=== PATIENT | male | born 1990 | race American Indian/Alaskan Native ===

== ENCOUNTER 2021-02-18 02:47 | Emergency (ER) | payer SELFPAY | END 2021-02-18 05:45 | disposition left against medical advice (07) | LOC: ED 02:47 | DX: R10.9 Unspecified abdominal pain (principal); Z53.21 Procedure and treatment not carried out due to patient leaving prior to being seen by health care provider ==

== ENCOUNTER 2021-02-18 09:37 | Emergency (ER) | payer SELFPAY ==
[2021-02-18 09:43] VITALS: BP 145/91
== END 2021-02-18 11:48 ==
LOC: ED 09:37
DX: R10.9 Unspecified abdominal pain (principal); Z53.21 Procedure and treatment not carried out due to patient leaving prior to being seen by health care provider

== ENCOUNTER 2021-08-02 06:10 | Emergency (ER) | payer MEDICAID ==
[2021-08-02 06:22] VITALS: BP 128/75
[2021-08-02] MEDS ORDERED: SODIUM CHLORIDE 0.9% 1000 ML 1,000 ML IV ONE (06:42)
[2021-08-02] MEDS ORDERED: HALOPERIDOL LACTATE 5 MG/1 ML INJ IM ONE (06:42)
[2021-08-02] MEDS ORDERED: DICYCLOMINE 20 MG/2 ML INJ IM ONE (06:43)
--- NOTE | 2021-08-02 06:47 | Emergency Department Report ---
ED Abdominal Pain HPI - General Chief Complaint: Abdominal Pain Stated Complaint: STOMACH PAIN Time Seen by Provider: 08/02/21 06:34 Source: patient Mode of arrival: Ambulatory Limitations: No Limitations - History of Present Illness Initial Comments: 30-year-old male with history of chronic abdominal pain, presents to ED with left lower quadrant pain x1 week. Patient states he has been having the same abdominal pain for quite some time. States he has been previously diagnosed with gastritis, gastroenteritis, and cannabinoid hyperemesis syndrome. Patient states his pain is always in the left lower quadrant. He reports nausea, vomiting, fever. He denies any dysuria, urinary frequency, hematuria. Patient states he has had CT scans in the past that were normal. He states he has been seen by a [employer] cook. He denies ever having had a upper endoscopy or colonoscopy. Patient states he last smoked marijuana 2 weeks ago. MD Complaint: abdominal pain -: week(s) (1) Location: LLQ Radiation: L flank Migration to: no migration Severity: severe Quality: sharp Consistency: constant Improves With: nothing Worsens With: nothing Associated Symptoms: nausea, vomiting, fever. denies: diarrhea, dysuria, hematuria - Related Data Previous Rx's Medication Instructions Recorded Last Taken Type Famotidine [Pepcid] 20 mg PO BID #40 tablet 05/30/15 Unknown Rx Hyoscyamine Subl [Levsin Sl 0.125 0.125 mg SL Q6HR PRN #15 tab 05/30/15 Unknown Rx TAB] Promethazine [Phenergan TAB] 25 mg PO Q6HR PRN #20 tab 05/30/15 Unknown Rx Dicyclomine [Bentyl] 20 mg PO Q6H PRN #30 tablet 03/02/21 Unknown Rx Esomeprazole Magnesium [NexIUM] 40 mg PO QDAY #30 capsule. 03/02/21 Unknown Rx Famotidine [Pepcid] 20 mg PO BID #60 tablet 03/02/21 Unknown Rx Ondansetron [Zofran Odt] 4 mg PO Q6HR PRN #20 tab.rapdis 03/02/21 Unknown Rx Dicyclomine [Bentyl] 20 mg PO QID PRN #20 tablet 08/02/21 Unknown Rx Ondansetron [Zofran Odt] 4 mg PO Q8HR PRN #20 tab.rapdis 08/02/21 Unknown Rx Allergies Allergy/AdvReac Type Severity Reaction Status Date / Time No Known Allergies Allergy Unverified 05/30/15 09:00 ED Review of Systems ROS: Stated complaint: STOMACH PAIN Other details as noted in HPI Comment: All other systems reviewed and negative Constitutional: fever Gastrointestinal: abdominal pain, nausea, vomiting Genitourinary: denies: dysuria, frequency, hematuria ED Past Medical Hx - Past Medical History Previous Medical History?: Yes Additional medical history: gastritis - Surgical History Past Surgical History?: No - Social History Smoking Status: Never Smoker Substance Use Type: None - Medications Home Medications: Home Medications Medication Instructions Recorded Confirmed Last Taken Type Famotidine [Pepcid] 20 mg PO BID #40 tablet 05/30/15 Unknown Rx Hyoscyamine Subl [Levsin Sl 0.125 0.125 mg SL Q6HR PRN #15 tab 05/30/15 Unknown Rx TAB] Promethazine [Phenergan TAB] 25 mg PO Q6HR PRN #20 tab 05/30/15 Unknown Rx Dicyclomine [Bentyl] 20 mg PO Q6H PRN #30 tablet 03/02/21 Unknown Rx Esomeprazole Magnesium [NexIUM] 40 mg PO QDAY #30 capsule.dr 03/02/21 Unknown Rx Famotidine [Pepcid] 20 mg PO BID #60 tablet 03/02/21 Unknown Rx Ondansetron [Zofran Odt] 4 mg PO Q6HR PRN #20 tab.rapdis 03/02/21 Unknown Rx Dicyclomine [Bentyl] 20 mg PO QID PRN #20 tablet 08/02/21 Unknown Rx Ondansetron [Zofran Odt] 4 mg PO Q8HR PRN #20 tab.rapdis 08/02/21 Unknown Rx ED Physical Exam - General Limitations: No Limitations General appearance: alert, other (Patient rolling around on the stretcher, however, when I asked him to stop so that I can ask questions and examine him, patient does so) - Head Head exam: Present: atraumatic, normocephalic - Eye Eye exam: Present: normal appearance, EOMI - ENT ENT exam: Present: mucous membranes moist - Neck Neck exam: Present: normal inspection - Respiratory Respiratory exam: Present: normal lung sounds bilaterally. Absent: respiratory distress - Cardiovascular Cardiovascular Exam: Present: regular rate, normal rhythm - GI/Abdominal GI/Abdominal exam: Present: soft, tenderness (LLQ). Absent: distended - Extremities Exam Extremities exam: Present: normal inspection - Back Exam Back exam: Absent: CVA tenderness (R), CVA tenderness (L) - Neurological Exam Neurological exam: Present: alert, oriented X3 - Psychiatric Psychiatric exam: Present: normal affect, normal mood - Skin Skin exam: Present: warm, dry, intact, normal color ED Course Vital Signs 08/02/21 08/02/21 06:21 09:34 Temperature 98.3 F Pulse Rate 63 Respiratory 20 Rate Blood Pressure 128/75 O2 Sat by Pulse 100 100 Oximetry - Reevaluation(s) Reevaluation #1: 08/02/21 08:04 Pt re-evaluated. He is currently in the recliner, asleep, resting comfortably. ED Medical Decision Making - Lab Data Result diagrams: 08/02/21 07:41 08/02/21 07:41 - Medical Decision Making 30-year-old male presents to ED with what he reports as his usual abdominal pain. Vital signs are stable. Patient has been reassessed multiple times after receiving Haldol and Bentyl. Patient has been comfortable in recliner chair. No emesis during ED stay. Labs are unremarkable. This is likely an exacerb ation of patient's chronic abdominal pain. Patient will be discharged at this time with prescriptions. Outpatient follow-up advised, return precautions given. - Differential Diagnosis Chronic pain, UTI, kidney stone Critical care attestation.: If time is entered above; I have spent that time in minutes in the direct care of this critically ill patient, excluding procedure time. ED Disposition Clinical Impression: Abdominal pain Disposition: HOME / SELF CARE / HOMELESS Is pt being admited?: No Condition: Stable Instructions: Abdominal Pain, Adult, [id number] Prescriptions: Dicyclomine [Bentyl] 20 mg PO QID PRN #20 tablet PRN Reason: abdominal pain Ondansetron [Zofran Odt] 4 mg PO Q8HR PRN #20 tab.rapdis PRN Reason: Vomiting Referrals: PRIMARY CARE, [Primary Care Provider] - 3-5 Days [facility] [Provider Group] - 3-5 Days [facility] [Provider Group] - 3-5 Days Time of Disposition: 10:15
[2021-08-02 08:00] LABS: Basophils # (Auto) 0.1 K/mm3 (0.0-0.1); Basophils % (Auto) 0.7 % (0.0-1.8); Eosinophils % (Auto) 0.2 % (0.0-4.3); Hematocrit 39.3 % (35.5-45.6); Hemoglobin 12.5 gm/dl (11.8-15.2); Lymphocytes # (Auto) 1.5 K/mm3 (1.2-5.4); Lymphocytes % (Auto) 16.3 % (13.4-35.0); Mean Corpuscular HGB Conc 32 % (32-34); Mean Corpuscular Volume 95 fl (84-94); Monocytes # (Auto) 0.5 K/mm3 (0.0-0.8); Monocytes % (Auto) 6.1 % (0.0-7.3); Platelet Count 243 K/mm3 (140-440); Red Blood Count 4.16 M/mm3 (3.65-5.03); Red Cell Distribution Width 14.1 % (13.2-15.2)
[2021-08-02 08:47] LABS: Alanine Aminotransferase 10 units/L (7-56); Albumin 3.8 g/dL (3.9-5); Blood Urea Nitrogen 12 mg/dL (9-20); Calcium 8.7 mg/dL (8.4-10.2); Hemolysis Index 15
[2021-08-02 08:57] LABS: BUN/Creatinine Ratio 17; Bilirubin,Direct < 0.2 mg/dL (0-0.2)
[2021-08-02 10:09] LABS: Bilirubin,Urine NEG (Negative); Blood,Urine SM (Negative); Color,Urine Yellow (Yellow); Mucus,Urine 3+ /HPF
== END 2021-08-02 10:31 | disposition home or self-care (01) ==
LOC: ED 06:10
DX: R10.32 Left lower quadrant pain (principal); R11.2 Nausea with vomiting, unspecified; Z79.899 Other long term (current) drug therapy
CPT/HCPCS: 36415; 80048; 80076; 81001; 85025; 96360; 96372; 99283; J0500; J1630; J7030